=== PATIENT | male | born 1960 | race Caucasian/White ===

== ENCOUNTER 2016-11-29 22:42 | Observation (INO) | payer OTHER ==
[~2016-11-29 22:42] MED LIST: ADULT LOW DOSE81 MG PO; EFFIENT10 MG PO; HABITROL 21 MG P1 EA TOP; JANUVIA100 MG PO; LANTUS100 UNIT/1 SQ; LOPRESSOR 25 MG25 MG PO; NEURONTIN 300300 MG PO; NITROSTAT0.4 MG SL; PROTONIX40 MG PO; ZESTRIL5 MG PO; ZOCOR20 MG PO
[2016-11-30 01:09] LABS: HEMOGLOBIN 16.1 gm/dl (14.0-17.5); RED BLOOD COUNT 5.42 M/UL (4.20-5.50)
[2016-11-30 01:26] LABS: BUN/CREATININE RATIO 11 (0-10)
[2016-11-30] MEDS ORDERED: LIPITOR TAB 2020 MG PO (10:16)
[2016-11-30] MEDS ORDERED: PEPCID20 MG PO (10:16)
[2016-11-30] MEDS ORDERED: ZOFRAN ODT 4 MG4 MG PO (10:19)
[2016-11-30] MEDS ORDERED: NORVASC 5 MG TAB5 MG PO (18:06)
[2016-11-30] MEDS ORDERED: ZOFRAN4 MG PO (18:06)
== END 2016-11-30 19:09 | disposition home or self-care (01) ==
LOC: ER1 22:42 → ZEROF 11-30 02:30 → M/S 11-30 08:24
PROVIDERS: Emergency Medicine; ADMIT Internal Medicine
DX: I25.110 Atherosclerotic heart disease of native coronary artery with unstable angina pectoris (principal); E11.9 Type 2 diabetes mellitus without complications; I10 Essential (primary) hypertension; E78.5 Hyperlipidemia, unspecified; I25.2 Old myocardial infarction; F17.210 Nicotine dependence, cigarettes, uncomplicated; Z79.891 Long term (current) use of opiate analgesic; Z79.82 Long term (current) use of aspirin; Z79.4 Long term (current) use of insulin; Z79.899 Other long term (current) drug therapy; Z95.1 Presence of aortocoronary bypass graft; Z95.5 Presence of coronary angioplasty implant and graft; Z90.79 Acquired absence of other genital organ(s); Z85.46 Personal history of malignant neoplasm of prostate; Z88.5 Allergy status to narcotic agent; Z82.49 Family history of ischemic heart disease and other diseases of the circulatory system
CPT/HCPCS: ECHO; 36415; 71010; 78452; 80048; 80061; 82550; 82553; 82962; 83036; 83874; 84443; 84484; 85025; 93005; 93017; 93306; 96372; 96376; 99285; A9502; G0378; J1650; J1817; J2785

== ENCOUNTER 2022-04-02 21:43 | Emergency (ER) | payer MEDICARE, OTHER ==
[~2022-04-02 21:43] MED LIST changes: +LIPITOR TAB 2020 MG PO; +NORVASC 5 MG TAB5 MG PO; +PEPCID20 MG PO; +ZOFRAN ODT 4 MG4 MG PO; +ZOFRAN4 MG PO
[2022-04-02 22:50] LABS: HEMOGLOBIN 14.7 gm/dl (14.0-17.5); RED BLOOD COUNT 4.95 M/UL (4.20-5.50); WHITE BLOOD COUNT 8.1 K/UL (4.5-11.0)
[2022-04-02 23:22] LABS: BUN/CREATININE RATIO 11 (0-10)
== END 2022-04-03 01:15 | disposition home or self-care (01) ==
LOC: ER1 21:43
PROVIDERS: Student in an Organized Health Care Education/Training Program
DX: T42.6X1A Poisoning by other antiepileptic and sedative-hypnotic drugs, accidental (unintentional), initial encounter (principal); I51.9 Heart disease, unspecified; E11.9 Type 2 diabetes mellitus without complications; F17.210 Nicotine dependence, cigarettes, uncomplicated
CPT/HCPCS: 36600; 80053; 80307; 82550; 82553; 82803; 84484; 85025; 96374; 99284; G0480; J2405